=== PATIENT | female | born 1955 | race African-American/Black ===

== ENCOUNTER 2018-11-07 14:12 | Observation (INO) ==
[2018-11-07] MEDS ORDERED: ASPIRIN PO ONE ×2 (14:18→14:19)
[2018-11-07] MEDS ORDERED: NITROGLYCERIN TOP ONE (15:28)
[2018-11-07 15:31] LABS: BASO# 0.02 X1000 (0.0-0.2); BASO% 0.3 % (0.0-0.8); EOS# 0.21 X1000 (0.0-0.7); EOS% 2.9 % (0.0-10.0); HEMOGLOBIN 11.3 g/dL (12.0-16.0); IMM GRAN# 0.01 X1000 (0.0-0.04); IMM GRAN% 0.1 % (0.0-0.5); LYMPH# 1.68 X1000 (1.2-3.4); LYMPH% 23.5 % (20.5-51.1); MCH 30.2 PG (27-31); MCHC 32.3 g/dL (33-37); MCV 93.6 FL (81-99); MONO% 12.6 % (1.7-9.3); MPV 11.8 FL (7.4-10.4); NEUT# 4.33 X1000 (1.4-6.5); NEUT% 60.6 % (42.2-75.2); PLT 206 X1000 (130-400); RBC 3.74 XMIL (4.2-5.4); WBC 7.15 X1000 (4.8-10.8)
[2018-11-07 16:08] LABS: AGAP 14; ALBUMIN 3.9 g/dL (3.5-5.0); ALKALINE PHOSPHATASE 51 U/L (32-104); BUN 17 mg/dL (8-22); CALCIUM 8.8 mg/dL (8.8-10.2); CHLORIDE 105 mmol/L (98-107); COSMO 284; CREATININE 0.6 mg/dL (0.5-0.9); ESTIMATED GFR > 60; GLUCOSE 92 mg/dL (70-104); GOT 15 U/L (10-30); GPT 27 U/L (10-36); SODIUM 142 mmol/L (136-145); TCO2 24 mmol/L (25-35); TOTAL PROTEIN 6.9 g/dL (6.3-8.3)
--- NOTE | 2018-11-07 16:31 | Diag Imaging Result Doc PS360 ---
EXAM: CHEST-2 VIEWS INDICATION: sob chest pain TECHNIQUE: 2 views COMPARISON: 08/14/2018 FINDINGS: The pulmonary vascularity is prominent suggesting pulmonary venous congestion. This is very similar to the previous study, however. The lungs are grossly clear, otherwise. There is no discrete pleural fluid collection or pneumothorax. There is stable cardiomegaly. IMPRESSION: Stable cardiomegaly and suggestion of mild pulmonary venous congestion. Electronically signed by Tolu Haddad 11/07/2018 4:29 PM
[2018-11-07 17:37] LABS: BILIRUBIN URINE NEGATIVE (NEGATIVE); BLOOD URINE NEGATIVE (NEGATIVE); CLARITY CLEAR (CLEAR); COLOR YELLOW; GLUCOSE URINE NEGATIVE (NEGATIVE); KETONE URINE NEGATIVE (NEGATIVE); LEUKOCYTES URINE 1+ (NEGATIVE); NITRITE URINE NEGATIVE (NEGATIVE); PROTEIN URINE TRACE mg/dL (NEGATIVE); UROBILINOGEN URINE NORMAL
[2018-11-07 17:39] LABS: URINE BACTERIA 2+ /HFP; URINE EPITHELIAL CELLS >10 /HPF (<10); URINE RBC <10 /HPF (<10); URINE SOURCE CLEAN CATCH; URINE WBC 20-40 /HPF (<10)
[2018-11-07 17:40] LABS: URINE CAST NONE SEEN /LPF; URINE CRYSTAL NONE SEEN /HPF; URINE YEAST NONE SEEN /HPF
[2018-11-07] MEDS ORDERED: XOPENEX NEB INH PRN (17:52)
[2018-11-07] MEDS ORDERED: DUONEB (A & A) INH PRN (17:52)
--- NOTE | 2018-11-07 18:28 | HISTORY AND PHYSICAL ---
PRIMARY CARE PROVIDER: Dr Mariana Figueroa. CHIEF COMPLAINT: Dyspnea and epigastric pain. HISTORY OF PRESENT ILLNESS: Mrs. Owens is a 63-year-old female with a history of morbid obesity with a BMI greater than 50, type 2 diabetes mellitus, coronary artery disease, and others who presents with dyspnea and epigastric pain since Thursday. Symptoms are vague. She gets short of breath mostly when she gets up and goes to the bathroom, however she is, for the most part, chair and bed bound. She has also been reporting epigastric discomfort, nonradiating, occurring randomly, not associated with exertion, and not relieved with anything in particular. She has not had any fevers or chills. She reports cough with whitish sputum production. No lower extremity edema but does report orthopnea. She reports PND as well. She came to the ER today for evaluation. Labs were unremarkable. Chest x-ray did not show anything acute. Her EKG shows sinus bradycardia without acute ST or T abnormalities. Given her history, we are going to admit her for observation status. PAST MEDICAL HISTORY: 1. Coronary artery disease, status post multiple MIs and stents. 2. Diabetes type 2, not requiring insulin. 3. Hyperlipidemia. 4. Morbid obesity with BMI greater than 50. 5. COPD requiring 24/7 oxygen. 6. Iron deficiency. 7. History of right breast cancer. 8. Chronic back pain. PAST SURGICAL HISTORY: She has had a tubal ligation, right breast lumpectomy, left arm surgery. SOCIAL HISTORY: She quit smoking cigarettes but she vapes heavily. Denies alcohol or drug use. FAMILY HISTORY: Noncontributory. REVIEW OF SYSTEMS: A 14-point review of systems was obtained and found to be negative with the exception of the HPI. ALLERGIES: No known drug allergies. HOME MEDICATIONS: Have not yet been compiled. PHYSICAL EXAMINATION: VITAL SIGNS: Blood pressure is 105/53, heart rate is 51, respiratory rate is 19, O2 saturation is 99% on 2 L, temperature is 98 degrees Fahrenheit. GENERAL: Morbidly obese female lying in hospital bed in no acute distress. NEUROLOGICAL: Awake, alert, and oriented. Follows commands. No focal deficits. HEENT: Head is atraumatic and normocephalic. Pupils are equal, round and reactive to light. Oral mucosa is a bit dry. NECK: Trachea is midline. Neck is difficult to assess given body habitus. CHEST: Distant but clear to auscultation. CARDIOVASCULAR: Distant heart sounds. S1 and S2 is noted. 2/6 murmur. GASTROINTESTINAL: No tenderness to palpation. Abdomen is soft. EXTREMITIES: No edema. Pulses are 1+ bilaterally. DIAGNOSTIC DATA: Chest x-ray shows stable cardiomegaly with suggestion of mild pulmonary vascular congestion. EKG shows sinus bradycardia. No acute ST or T abnormalities. WBC is 7.15, hemoglobin 11.3, hematocrit 35.0, platelet count 206. D dimer 0.33. Sodium is 142, potassium 4.0, chloride 105, CO2 is 24, anion gap 14, BUN is 17, creatinine 0.6, glucose is 92, calcium 8.8. LFTs negative. Troponin negative. proBNP 544. ASSESSMENT AND PLAN: 1. Atypical chest pain: The patient will be admitted for observation status. We will trend cardiac enzymes. Continue aspirin. Check an echo in the morning. Continue breathing treatments and pulmonary toilet. 2. Dyspnea: Probably hypoventilation/Pickwickian given her body habitus. D dimer is negative. There is no evidence of coronary ischemia. Chest x-ray does not show anything acute. We are going to check an echo. Continue breathing treatments. 3. Hypertension: Continue home medications once compiled. 4. Chronic obstructive pulmonary disease: No exacerbation noted. Lungs are clear. Continue home medications once compiled, oxygen, and pulmonary toilet. 5. Type 2 diabetes: Will add patterned sugars, sliding scale insulin, and diabetic diet. 6. Iron deficiency anemia: Continue her home iron. 7. Hyperlipidemia: Will check a lipid panel in the morning. Continue statin. 8. Deep venous thrombosis prophylaxis with Lovenox. Further recommendations to follow. Dictated by BRE Rosas for Jurgen Calix MD cc: BRE Rosas MD
--- NOTE | 2018-11-07 18:49 | HISTORY AND PHYSICAL ---
ADDENDUM: Patient seen and examined in the ER. Full note dictated and discussed by nurse practitioner. Patient states that she is having chest pain midsternal. States it is a little similar, but not completely, to her previous 3 MIs and 3 stents. Does have a known history of hypertension, diabetes, and high cholesterol. States the pain has been going on for 3 or 4 days. We will admit her to the hospital, rule out [place], and further disposition at that time. cc: Jurgen Calix MD
[2018-11-07] MEDS: DUONEB (A & A) INH SCH ×2 (19:42→22:48)
[2018-11-07] MEDS: LOVENOX SUBQ SCH (22:02)
[2018-11-07] MEDS: HUMULIN R SUBQ SCH (22:02)
--- NOTE | 2018-11-07 22:38 | PROVIDER DOCUMENTATION ---
This chart was entered by Estee Dumont Scribe, acting as scribe for Kashif Gonzalez MD. HPI-General Adult - General Chief Complaint: Shortness of Breath Stated Complaint: chest Time Seen by Provider: 11/07/18 15:18 Source: patient Allergies/Adverse Reactions: Patient Allergies Allergy/AdvReac Type Severity Reaction Status Date / Time No Known Allergies Allergy Verified 10/24/15 00:25 Home Medications: Home Medication List Medication Instructions Recorded Confirmed Last Taken Type Clopidogrel [Plavix] 75 mg PO DAILY 12/12/13 11/07/18 10/23/15 07:00 History Fluoxetine HCl 40 mg PO DAILY 12/12/13 11/07/18 10/23/15 07:00 History Glimepiride 4 mg PO BID 12/12/13 11/07/18 10/23/15 07:00 History Lisinopril 10 mg PO DAILY 12/12/13 11/07/18 10/23/15 07:00 History Metformin HCl [Metformin ER 500 mg PO BID 12/12/13 11/07/18 10/23/15 07:00 History Osmotic] Montelukast Sodium 10 mg PO DAILY 12/12/13 11/07/18 10/23/15 07:00 History Potassium Chloride E.r. [Klor-Con] 20 meq PO BID 12/12/13 11/07/18 10/23/15 07:00 History Multivitamin/Iron/Folic Acid 1 each PO DAILY #0 tablet 12/25/13 11/07/18 10/23/15 07:00 Rx [Multi-Day Plus Iron Tablet] Aspirin 81 mg PO DAILY 10/24/15 11/07/18 10/23/15 07:00 History Carvedilol [Coreg] 6.25 mg PO BID 10/24/15 11/07/18 10/23/15 07:00 History Ferrous Sulfate 325 mg PO BID 10/24/15 11/07/18 10/23/15 07:00 History Furosemide [Lasix] 40 mg PO BID 10/24/15 11/07/18 10/23/15 07:00 History Omeprazole 20 mg PO DAILY 10/24/15 11/07/18 10/23/15 07:00 History PRAVAstatin [Pravachol] 80 mg PO DAILY 10/24/15 11/07/18 10/23/15 07:00 History Cetirizine HCl 10 mg PO DAILY 09/18/17 11/07/18 Unknown History Mayfield-3 Fatty Acids/Fish Oil 1 each PO DAILY 09/18/17 11/07/18 Unknown History [[place]field 3 1,000 mg Softgel] Temazepam 15 mg PO DAILY 09/18/17 11/07/18 Unknown History Albuterol Sulfate Inhaler 2 puff INH Q6H PRN PRN #1 inhaler 08/14/18 11/07/18 Unknown Rx [Ventolin Hfa] Amlodipine Besylate 10 mg PO DAILY 11/07/18 11/07/18 Unknown History Baclofen 20 mg PO TID 11/07/18 11/07/18 Unknown History Budesonide/Formoterol Fumarate 1 puff PO DAILY 11/07/18 11/07/18 Unknown History [Symbicort 160-4.5 Mcg Inhaler] Docusate Sodium [Dok] 100 mg PO BID 11/07/18 11/07/18 Unknown History Hydrocodone/Acetaminophen 7.5 mg PO TID PRN PRN 11/07/18 11/07/18 Unknown History [Hydrocodone-Acetamin 7.5-325] Linaclotide [Linzess] 145 mcg PO DAILY 11/07/18 11/07/18 Unknown History Oxybutynin Chloride [Oxybutynin 10 mg PO DAILY 11/07/18 11/07/18 Unknown History Chloride ER] - History of Present Illness -Gen Adult Nature of Presenting Problems: 63 year old female presents to the ER with complaint of SOB x 2 days with productive cough (white). Pt also complains of chest pain 8/10 on pain scale. Pt has history of 5 stent placement. Location of Pain/Injury: reports: chest (right side) Pain Radiation: reports: no radiation Quality of Pain: reports: sharp Severity: reports: moderate, severe Onset/Duration: reports: 2 days ago Timing: reports: intermittent (4 times total each time 5-10 minutes) Context/Activities at Onset: reports: none Modifying Factors: improves with: nothing Associated Symptoms: reports: cough, shortness of breath Similar Symptoms Previously?: Yes Recently seen or treated by another doctor?: No Review of Systems - Adult - REVIEW OF SYSTEMS - ADULT Constitutional: denies: chills, fever Eyes: reports: no symptoms reported Ears, Nose, Mouth & Throat: reports: no symptoms reported Cardiovascular: reports: chest pain. denies: palpitations Respiratory: reports: cough, excessive sputum production, shortness of breath Gastrointestinal: reports: no symptoms reported Genitourinary: reports: no symptoms reported Musculoskeletal: reports: no symptoms reported Integumentary: reports: no symptoms reported Neurological: reports: no symptoms reported Psychiatric: reports: no symptoms reported Endocrine: reports: no symptoms reported Past History - Adult - PAST MEDICAL HISTORY-ADULT Review of Records: reports: Nursing Assessment Review, Medications Reviewed Major Childhood Illnesses: reports: denies history Cardiovascular: reports: cardiac disease, HTN, [place] Respiratory: reports: denies history Gastrointestinal: reports: GERD Obstetrical/Gynecological: reports: denies history Genitourinary: reports: denies history Musculoskeletal: reports: denies history Neurological: reports: denies history Endocrine/Immune: reports: Diabetes Other Conditions: reports: denies history, other cancer (breast) - PRIOR SURGERIES/PROCEDURES Surgical/Procedure History: reports: BTL, other (conary artery stents) - PRIOR HOSPITALIZATIONS Prior Hospitalizations: reports: for other non-related - IMMUNIZATION STATUS Childhood Immunizations: See Nurse Assessment Flu Vaccine: See Nurse Assessment - FAMILY HISTORY Family History: reviewed, not pertinent Physical Exam-General - PHYSICAL EXAM-ADULT Initial Vital Signs Reviewed: Yes - CONSTITUTIONAL General Appearance: alert, mild distress - EYES Eyes: PERRL/EOMI, pink conjunctivae - HEAD, EARS, NOSE, MOUTH & THROAT HENMT: normocephalic/atraumatic, moist mucous membranes, normal ENT inspection - NECK Neck: non-tender, normal inspection - RESPIRATORY Respiratory: lungs clear, normal breath sounds - CARDIOVASCULAR Cardiovascular: normal peripheral pulses, regular rate, rhythm - GASTROINTESTINAL (ABDOMEN) Abdominal Exam: normal bowel sounds, non tender, soft - MUSCULOSKELETAL Back Exam: no CVA tenderness, no vertebral tenderness Extremity: normal range of motion, normal inspection - SKIN Integumentary: normal color, warm/dry - NEUROLOGIC Neurologic: grossly normal, no motor/sensory deficits - PSYCHIATRIC Psych/Mental Status: normal thought process, oriented x 3 Progress - PLAN OF CARE/RESULTS Progress/Plan/Lab Results: Vital Signs - 8 hr 11/07/18 14:13 Temperature 98 F Pulse Rate 50 L Respiratory Rate 20 Blood Pressure 152/65 O2 Sat by Pulse Oximetry 93 L Laboratory Results - last 24 hr 05/05/19 14:50 WBC 7.15 RBC 3.74 L Hgb 11.3 L Hct 35.0 L MCV 93.6 MCH 30.2 MCHC 32.3 L RDW Std Deviation 14.0 Plt Count 206 MPV 11.8 H Immature Gran % (Auto) 0.1 Neut % (Auto) 60.6 Lymph % (Auto) 23.5 Lyman % (Auto) 12.6 H Eos % (Auto) 2.9 Baso % (Auto) 0.3 Immature Gran # (Auto) 0.01 Neut # (Auto) 4.33 Lymph # (Auto) 1.68 Lyman # (Auto) 0.90 H Eos # (Auto) 0.21 Baso # (Auto) 0.02 Orders Category Date Time Status CHEST-2 VIEWS [RAD] Stat Exams 11/07/18 14:16 Taken CBC WITH DIFF [HEME] Stat Lab 11/07/18 14:50 Completed CK PROFILE [SP CHEM] Stat Lab 11/07/18 14:50 Received COMPREHENSIVE METABOLIC PANEL [CHEM] Stat Lab 11/07/18 14:50 Received D-DIMER [COAG] Stat Lab 11/07/18 14:50 Received PRO B-NATRIURETIC PEPTIDE Stat Lab 11/07/18 14:50 Received TROPONIN T Stat Lab 11/07/18 14:50 Received Aspirin Med 11/07/18 14:18 Discontinued 325 mg PO NOW ONE Aspirin Med 11/07/18 14:19 Discontinued 325 mg PO NOW ONE Nitroglycerin Med 11/07/18 15:28 Discontinued 0.5 inch TOP NOW ONE PT WITH Hx ACS s/p 5 stents. Heart score 5. No recent cardiac workup, need furt her cardiac workup. Result Diagrams: 11/07/18 14:50 11/07/18 14:50 - EKG 1 Time of EKG reading by physician:: 15:55 EKG Read and Signed by:: Kashif Gonzalez EKG Interpretation (*Must complete 3 of following elements*): Normal Rate: 54 Rhythm: sinus bradycardia Sidon: normal QRS: normal - CONSULTS/PCP/HOSPITALIST Notification #1 *Consult/PCP/Hospitalist*: Dr. Calix Time Discussed: 17:09 Consult Disposition: Admit (Hx, PE and patient care discussed, admitted.) Departure - Departure Date of Disposition Decision: 11/07/18 Time of Disposition Decision: 17:08 DIAGNOSIS: SOB (shortness of breath) Chest pain Qualifiers: Chest pain type: unspecified Qualified Code(s): R07.9 - Chest pain, unspecified Disposition: ADMITTED INPATIENT 09 Certified Medical Emergency: Emergent Condition: Stable - Critical Care Note This patient required my direct & personal management of CC.: No Attestation - Physician/ ROMULO Attestation Patient care was provided by Advanced Practice Provider:: No The physician spent face to face time with patient:: Yes Advanced Practice Provider documentation review:: Supervising physician onsite and consulted in the evaluation and care of this patient. The physician did have a face to face encounter with the patient. This chart was documented by the indicated scribe, (Estee Dumont, Mine) and accurately reflects the services I performed and decisions made by me, Kashif Garcia MD, as attested by the provider's signature.
[2018-11-07] MEDS: PRAVACHOL PO SCH (22:55)
[2018-11-07] MEDS: COREG PO SCH (22:55)
[2018-11-07] MEDS: BACTROBAN OINTMENT TOP SCH (22:55)
[2018-11-07] MEDS: AMARYL PO SCH (22:55)
[2018-11-07] MEDS: FISH OIL CONCENTRATE PO SCH (22:56)
[2018-11-07] MEDS: GLUCOPHAGE XR PO SCH (22:56)
[2018-11-07] MEDS: KLOR-CON PO SCH (22:56)
[2018-11-07] MEDS: RESTORIL PO SCH (22:56)
[2018-11-07] MEDS: LIORESAL PO SCH (22:56)
[2018-11-07] MEDS: DITROPAN XL PO SCH (22:56)
[2018-11-07] MEDS: FERROUS SULFATE PO SCH (22:56)
[2018-11-08] MEDS: DUONEB (A & A) INH SCH ×6 (03:08→23:19)
[2018-11-08] MEDS: TYLENOL PO PRN ×2 (05:53→12:52)
[2018-11-08] MEDS: HUMULIN R SUBQ SCH (06:07)
[2018-11-08 06:45] LABS: HEMATOCRIT 35.4 % (37.0-47.0); HEMOGLOBIN 11.3 g/dL (12.0-16.0); MCH 29.8 PG (27-31); MCHC 31.9 g/dL (33-37); MCV 93.4 FL (81-99); MPV 11.9 FL (7.4-10.4); RBC 3.79 XMIL (4.2-5.4); WBC 7.28 X1000 (4.8-10.8)
[2018-11-08 07:15] LABS: AGAP 10; BUN 15 mg/dL (8-22); CALCIUM 8.7 mg/dL (8.8-10.2); CHLORIDE 108 mmol/L (98-107); CHOLESTEROL 161 mg/dL (0-200); COSMO 288; CREATININE 0.6 mg/dL (0.5-0.9); ESTIMATED GFR > 60; GLUCOSE 71 mg/dL (70-104); HDL 53 mg/dL (45-65); LDL 89 mg/dL; MAGNESIUM 1.6 mg/dL (1.5-2.7); SODIUM 145 mmol/L (136-145); TCO2 27 mmol/L (25-35); TRIGLYCERIDES 97 mg/dL (35-135); VLDL 19 mg/dL
[2018-11-08] MEDS ORDERED: ASPIRIN PO SCH (09:00)
[2018-11-08] MEDS: BACTROBAN OINTMENT TOP SCH ×2 (09:20→20:30)
[2018-11-08] MEDS: AMARYL PO SCH ×2 (09:20→20:31)
[2018-11-08] MEDS: SINGULAIR PO SCH (09:20)
[2018-11-08] MEDS: FERROUS SULFATE PO SCH ×2 (09:20→20:30)
[2018-11-08] MEDS: LIORESAL PO SCH ×3 (09:21→17:02)
[2018-11-08] MEDS: DITROPAN XL PO SCH (09:21)
[2018-11-08] MEDS: RESTORIL PO SCH (09:21)
[2018-11-08] MEDS: GLUCOPHAGE XR PO SCH ×2 (09:21→20:31)
[2018-11-08] MEDS: COREG PO SCH ×2 (09:21→20:31)
[2018-11-08] MEDS: FISH OIL CONCENTRATE PO SCH (09:21)
[2018-11-08] MEDS: KLOR-CON PO SCH ×2 (09:21→20:31)
[2018-11-08] MEDS: PRAVACHOL PO SCH (09:22)
[2018-11-08] MEDS ORDERED: XOPENEX NEB INH PRN (11:06)
[2018-11-08] MEDS: HUMULIN R (PARKWAY) SUBQ SCH ×3 (11:30→20:34)
--- NOTE | 2018-11-08 13:05 | EKG Report ---
Test Performed on : 11/07/2018 6:36:01 PM Test Reason : CP Blood Pressure : / mmHG Vent. Rate : 055 BPM Atrial Rate : 055 BPM P-R Int : 196 ms QRS Dur : 092 ms QT Int : 444 ms P-R-T Axes : 049 018 041 degrees QTc Int : 424 ms Sinus bradycardia. with sinus arrhythmia. Possible Inferior infarct , age undetermined Abnormal ECG When compared with ECG of 07-NOV-2018 14:25, (Unconfirmed) No significant change was found Unconfirmed Result
--- NOTE | 2018-11-08 15:40 | PROGRESS NOTE ---
DATE: 11/08/2018 SUBJECTIVE: Patient reports is still complaining of central thoracic chest pain. Denies any fever or chills. OBJECTIVE: Vital Signs: Temperature 97.9, heart rate 48, respiratory rate 16, blood pressure 136/33. O2 sat 99% on room air. General: This is a 63-year-old female lying in bed in no acute distress. HEENT: Head is normocephalic, atraumatic. Neck: No JVD noted. No carotid bruits. No lymphadenopathy. No thyromegaly. Cardiovascular: S1, S2 heard. No murmurs, gallops or rubs. Regular rate and rhythm. Respiratory: Clear bilaterally to auscultation. No work of breathing or using accessory muscles. Abdomen: Soft, nontender to palpation. Bowel sounds present. No organomegaly. Extremities: No clubbing, cyanosis or edema. Peripheral pulses present in both legs. Neurologic: Patient is alert and oriented x 3. Moves 4 extremities. LABORATORY DATA: We have checked troponins 3 times and those are negative. There is an order for echo that has been cancelled. ASSESSMENT AND PLAN: 1. Chest pain. Patient admitted for observation status. Patient has history of coronary artery disease with stents placed. We have trend cardiac enzymes x 3, in this case troponins, and those are negative. We can continue with aspirin. Echo has been, we initially ordered it on admission, it has been canceled. I have not seen any echo done here in [facility]. I don't know if she had one done in [facility]. In any case, we will order one and will follow Cardiology. 2. Hypertension. Blood pressure is under control. We will continue with the same management. 3. COPD. Patient is not in any exacerbation. No wheezing noted. We will continue with breathing treatments. 4. Diabetes mellitus type 2. We will continue with sliding scale insulin. Accu-Chek before meals and also at bedtime. 5. Hyperlipidemia. We will continue with statin. 6. DVT prophylaxis. Patient is on Lovenox. 7. Disposition. Depending upon Cardiology, as we mentioned before, patient is complaining of central thoracic pain. She has history of IN with stents placed. We will check an echo will see what Cardiology has to say. cc: MD SHEYLA Bird
[2018-11-08] MEDS: LOVENOX SUBQ SCH (17:02)
--- NOTE | 2018-11-08 17:22 | ECHO REPORT ---
ORDER DATE: 11/08/2018 INTERPRETING PHYSICIAN: Dr. Mckeon CLINICAL INDICATIONS: Chest pain and dyspnea. M-MODE MEASUREMENTS: Left ventricle end diastole: 5.5 cm. Left ventricle end systole: 3.4 cm. Posterior wall: 1.3 cm. Interventricular septum: 1.3 cm. Left atrium: 4.9 cm. Aortic diameter: 3.0 cm. SUMMARY OF 2-DIMENSIONAL IMAGING: The study is somewhat difficult. Optison was added to the study at the end of the echocardiographic study to optimize visualization of endocardium. 1. Left ventricular function appears to be at the lower limits of normal. Estimated roughly at 57%. There is mild degree of concentric LVH. 2. The mitral annulus is densely calcified. Color flow mapping of the mitral annulus indicates mild degree of regurgitation. Continuous wave Doppler across the mitral valve indicates a maximum gradient of 17 mm, mean gradient of 8 mm, raising some concern for mild degree of mitral stenosis. This is probably just calcific mitral valve. 3. The tissue Doppler of the septal and lateral mitral annulus averages just 5 cm, indicating impaired left ventricular relaxation. 4. The aortic valve is calcified. It shows restricted opening. Maximum gradient is 23 mmHg. Mean gradient 13 mmHg. This would suggest a mild degree of aortic stenosis. Valve area probably in the order of 1.5 cm2. Color flow mapping shows mild degree of aortic regurgitation. 5. Tricuspid valve shows mild degree of regurgitation. 6. Pulmonary pressure is estimated at 52 mmHg. The inferior vena cava is not dilated. 7. No convincing evidence of wall motion abnormality was noted with Optison and the ejection fraction appeared to be grossly within normal range. 8. The atria appeared to be mildly enlarged. The right ventricle was suboptimally visualized. Clinical correlation is recommended. cc: MD Jaleel Sun CRNP MTDD
--- NOTE | 2018-11-08 17:39 | CARDIOLOGY CONSULTATION ---
DATE: 11/08/2018 CHIEF COMPLAINT: Chest pain. HISTORY OF PRESENT ILLNESS: Ms Owens is a 63-year-old black female with a history of coronary disease, diabetes and morbid obesity. She presented for evaluation of shortness of breath and epigastric/lower sternal chest pain. This has been going on for 3 to 4 days waxing and waning but present there pretty much all the time. She reports no provokers or palliators. There is no exertional component to it. PAST MEDICAL HISTORY: 1. Significant for coronary disease with previous PCI. I do not have any records for many of these except for 1 case in 2008 at which time, she had a stent to the right coronary. On that study the left main, left anterior descending and circumflex vessels all appeared to have minimal to no disease. 2. Diabetes. 3. Hyperlipidemia. 4. Morbid obesity with BMI over 50. 5. COPD. 6. Iron deficiency anemia. 7. History of breast cancer. 8. Chronic pain. SOCIAL HISTORY: She quit smoking but apparently still vapes. No alcohol or drug use. FAMILY HISTORY: Significant for hypertension. REVIEW OF SYSTEMS: A 10 system review of systems is negative except for those things mentioned in HPI. PHYSICAL: She is afebrile, heart rate of 54, blood pressure 132/75, O2 saturation is 92% on 2 L.General: She is in no acute distress. HEENT: Oropharynx moist. Poor dentition. Eye examination shows pink conjunctivae. White sclerae. Neck: Shows no obvious thyromegaly or thyroid tenderness. Cardiovascular: She has distant heart sounds. Regular rate and rhythm. No murmurs. No S3. She has no lower extremity edema. Chest: Sounds clear, very distant. No increased work of breathing. Abdomen: Soft, nontender, nondistended. No obvious organomegaly but significantly limited examination secondary to her obesity. Skin: Warm and dry throughout. Neurological: Moving all extremities well. No lateralizing deficits. Psychiatric: Alert, oriented, pleasant. She has normal mood and affect. PERTINENT DATA: EKG reviewed by me Nov 07 1424 sinus rhythm, rate of 54 beats per minute, very small inferior Q-waves, 2nd EKG at 1836 on November 07 shows sinus rhythm, small inferior Q-waves, no acute signs of ischemia. Chest x-ray shows cardiomegaly with possible mild pulmonary venous congestion. White count 7.2, hematocrit 35, platelet count is 198,000. Sodium 145, potassium 4, BUN 15, creatinine 0.6, mag level is 1.6. Cardiac enzymes are negative times multiple sets. Her proBNP is 544. ASSESSMENT: Ms. Owens is a 63-year-old female with a history of coronary disease who presents for somewhat atypical chest discomfort. PLAN: We will proceed with myocardial perfusion imaging in the morning along with an echocardiogram. Will try giving her a small IV dose of Lasix at 20 mg IV x1 given her slight elevation in proBNP, her symptoms of shortness of breath as well as her chest discomfort. We will treat her and see if she has an improvement in the symptom. Her LDL was above 70. I will discontinue her pravastatin and place her on atorvastatin given her history of PCI in the past. cc: Nikhil Ramos MD
[2018-11-08] MEDS ORDERED: LOMOTIL PO PRN (19:19)
[2018-11-08] MEDS ORDERED: LIPITOR PO SCH (21:00)
[2018-11-09] MEDS: DUONEB (A & A) INH SCH ×4 (03:05→15:06)
[2018-11-09] MEDS: HUMULIN R (PARKWAY) SUBQ SCH ×3 (06:13→16:40)
[2018-11-09] MEDS ORDERED: ASPIRIN PO SCH (09:00)
--- NOTE | 2018-11-09 11:27 | GRADED EXERCISE REPORT ---
DATE: 11/09/2018 ORDERING PHYSICIAN: DR. Ramos. PROCEDURE PERFORMED: This is a Lexiscan EKG interpretation, administration of test. SUMMARY: Heart rate 74, blood pressure 174/70. Baseline EKG showed normal sinus rhythm, nonspecific ST changes. However, she had frequent PACs with a compensatory pause which she had throughout her exam. She was administered 0.4 mg Lexiscan. She did not have chest pain after administration or during the course of the test. However, she did have, again, frequent PACs with pauses. Her peak heart rate 93, peak blood pressure 181/70. Tolerated the test without difficulty. The test was felt to be clinically negative. Electrically, there were no ST changes. However, again, she had frequent PACs with compensatory pauses. Myocardial perfusion reported separately. cc: Pepe Walker MD
[2018-11-09] MEDS: LIORESAL PO SCH ×3 (12:10→16:39)
[2018-11-09] MEDS: COREG PO SCH (12:11)
[2018-11-09] MEDS: SINGULAIR PO SCH (12:11)
[2018-11-09] MEDS: FISH OIL CONCENTRATE PO SCH (12:11)
[2018-11-09] MEDS: RESTORIL PO SCH (12:11)
[2018-11-09] MEDS: GLUCOPHAGE XR PO SCH ×2 (12:11→17:20)
[2018-11-09] MEDS: KLOR-CON PO SCH (12:12)
[2018-11-09] MEDS: DITROPAN XL PO SCH (12:12)
[2018-11-09] MEDS: BACTROBAN OINTMENT TOP SCH (12:12)
[2018-11-09] MEDS: FERROUS SULFATE PO SCH (12:12)
[2018-11-09] MEDS: AMARYL PO SCH ×2 (12:12→17:20)
[2018-11-09] MEDS ORDERED: NORCO-7.5 PO PRN (12:25)
[2018-11-09 15:42] VITALS: BP 143/51
--- NOTE | 2018-11-09 15:51 | Diag Imaging Result Document ---
PROCEDURE NAME: MYOCARDIAL PERF SCAN, STR/REST - 11/09/2018 INDICATION: Chest pain. PROCEDURES PERFORMED: 1. Lexiscan stress (results dictated separately by primary physician). 2. One day stress/rest myocardial perfusion imaging. PROCEDURE IN DETAIL: Ms. Owens was brought to the nuclear laboratory and had a resting study with injection of 15.9 mCi of technetium-99m sestamibi with usual imaging protocol utilized. She subsequently was brought back and had a Lexiscan stress. At peak stress, was injected with 45.3 mCi of technetium-99m sestamibi with usual imaging protocol utilized. FINDINGS: 1. Lexiscan stress results dictated separately. 2. No evidence of transient ischemic dilatation. The ratio is 0.94. 3. There is evidence for abnormal extracardiac uptake on the rest images in the right upper extremity. This is likely external radiotracer contamination on the right upper extremity. 4. Perfusion imaging demonstrates a large size, [id number] intensity, fixed defect. This appears to be located in the inferior basilar, mid inferior, inferior apical. This is fixed and consistent with scar. In addition, there does appear to be an area of reduced activity in the apical and anterior apical, which is likely consistent with soft tissue attenuation. Wall motion is intact in this area. 5. Normal ejection fraction of 72%. The end-diastolic volume is 141, end-systolic volume is 40. Inferior hypokinesis is noted. cc: Nikhil Ramos MD
[2018-11-09] MEDS ORDERED: LEXISCAN ONE (16:02)
[2018-11-09] MEDS: LOVENOX SUBQ SCH (17:20)
--- NOTE | 2018-11-09 22:00 | DISCHARGE SUMMARY ---
ADMISSION DATE: 11/07/2018 DISCHARGE DATE: 11/09/2018 ADMISSION DIAGNOSES: 1. Atypical chest pain. 2. Dyspnea. 3. Hypertension. 4. Chronic obstructive pulmonary disease, no exacerbation. 5. Diabetes mellitus type 2. 6. Iron-deficiency anemia. 7. Hyperlipidemia. DISCHARGE DIAGNOSES: 1. Atypical chest pain. Chest pain free at this time. Stress test shows an inferior infarct which is known and a second defect on the stress which looked like breast attenuation. Ejection fraction normal. 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 It was felt that it was safe to go home, per Dr. Ramos. 2. Hypertension, controlled. 3. Chronic obstructive pulmonary disease, no exacerbation. 4. Diabetes mellitus type 2, controlled as well. 5. Hyperlipidemia, continued on statin. CONSULTATIONS: Dr. Nikhil Ramos. SURGERIES OR PROCEDURES: She had a myocardial perfusion scan. Perfusion imaging demonstrates a large-sized [id number]-intensity fixed defect that appears to be located in the very basilar mid-inferior apical, which is consistent with scar, a fixed defect. Normal ejection fraction, and diastolic volume is 151. Inferior hypokinesis. An exercise stress test was negative. There were no ST changes. There were frequent PACs with compensatory pauses. HOSPITAL COURSE: On 11/07/2018, Ms. Amna Owens, an female, presented with a history of morbid obesity (BMI 43.6), diabetes, and coronary disease with complaints of dyspnea and epigastric pain since the Thursday prior to admission. The dyspnea was mostly exertional, but otherwise she is chair or bed bound. There was also a reporting of epigastric discomfort that was nonradiating. It was just random in occurrence, not associated with exertion. Denied fever or chills. Chest x-ray was acute. Labs were unremarkable. EKG did not show any ST changes. She remained cardiac enzyme negative. She had a myocardial perfusion scan that showed old scarring in the inferior area, also an exercise stress test that was negative. She was seen by cardiology and had an echocardiogram as well while she was here, which showed an EF of 57%. There was some concern for a mild degree of mitral stenosis and also signs of impaired left ventricular relaxation. The aortic valve was also calcified with a mild degree of aortic stenosis. There was pulmonary artery hypertension with a 52 mmHg systolic pulmonary pressure. Currently she is chest pain free and is deemed appropriate for discharge home. DISCHARGE VITAL SIGNS: Temperature 98.4, heart rate 58, respiratory rate 20, blood pressure 143/51, O2 saturation 93% on 2 L nasal cannula. LABORATORY DATA: None today, but cardiac enzymes have been negative. PERTINENT IMAGING: On 11/07/2018, chest x-ray showed stable cardiomegaly, suggestion of mild pulmonary venous congestion. Echocardiogram was as reported in the hospital course. EKG: Sinus bradycardia, rate 55. QTc was 424. DISCHARGE MEDICATIONS: 1. Amlodipine besylate 10 mg p.o. daily. 2. Aspirin 81 mg p.o. daily. 3. Baclofen 20 mg p.o. t.i.d. 4. Cetirizine HCl 10 mg p.o. daily. 5. Coreg 6.25 mg p.o. twice daily 6. Docusate sodium 100 mg p.o. twice daily 7. Ferrous sulfate 325 p.o. twice daily. 8. Fluoxetine HCl 40 mg p.o. daily. 9. Glimepiride 4 mg p.o. twice daily. 10.[place] 7.5 t.i.d. p.r.n. 11.Potassium chloride extended release 29 mEq p.o. twice daily 12.Lasix 40 mg p.o. twice daily. 13.Linzess 145 mcg p.o. daily. 14.Lisinopril 10 mg p.o. daily. 15.Metformin 500 mg p.o. twice daily. 16.Montelukast sodium 10 mg p.o. daily. 17.Fish oil once daily. 18.Omeprazole 20 mg p.o. daily. 19.Oxybutynin chloride 10 mg p.o. daily. 20.Plavix 75 mg p.o. daily. 21.Pravachol/pravastatin 80 mg p.o. daily. 22.Budesonide/formoterol fumarate 1 puff daily. 23.Temazepam 50 mg p.o. daily. 24.Multivitamin once daily. 25.Albuterol 2 puffs inhaled every 6 hours p.r.n. DISCHARGE ACTIVITY: As tolerated. DISCHARGE DIET: Heart healthy and diabetic. DISCHARGE INSTRUCTIONS: If your condition changes, contact your physician and/or return to the emergency department. Changes may include but are not limited to shortness of breath, increased fatigue, excessive bleeding, unexplained weight loss or gain, unimaginable pain, or signs or symptoms of infection. PHYSICIAN FOLLOWUP: With Dr. Mariana Figueroa and Dr. Nikhil Ramos. DISCHARGE DISPOSITION: Home. Dictated by BRE Sandra for Salomon Garcia MD Addendum: Patient seen and examined by myself. Agree with BRE note. It reflects my assessment and plan. Patient is being discharged in stable condition. will be seen by Water [employer] Servicer [employer] Installer in 4 weeks. In the other hand patient has mobility limitations that significantly impair her participation in mobility-related activities of daily living. In order to entirely meet her needs a walker or cane is not sufficient to meet patient mobility needs. Patient has expressed a willingness ot use manual wheelchair and her residency has adequate space to manually operate the wheelchair which will improve patient's ability to complete her activities of daily living. She has a sufficient upper body strength to propel wheelchair manually. cc: BRE Sandra MD [facility]
== END 2018-11-09 17:24 | disposition home or self-care (01) ==
LOC: P.ED 14:12 → P.MEDSURG 14:12 → SUATTDRO 18:22
PROVIDERS: ATTEND Internal Medicine
CPT/HCPCS: 71020; 71046; 78452; 80048; 80053; 80061; 81001; 82550; 82948; 83735; 83880; 84484; 85025; 85027; 85379; 87088; 87324; 93005; 93017; 93306; 94640; 94761; 99285; A9270; A9500; C8929; J1650; J1815; J2785; Q9957; XXXXX

== ENCOUNTER 2018-11-15 12:27 | Inpatient (IN) ==
[~2018-11-15 12:27] MED LIST: NITROGLYCERIN SL ONE
[2018-11-15 12:38] LABS: BASO# 0.02 X1000 (0.0-0.2); BASO% 0.3 % (0.0-0.8); EOS# 0.25 X1000 (0.0-0.7); EOS% 3.4 % (0.0-10.0); HEMOGLOBIN 11.9 g/dL (12.0-16.0); IMM GRAN# 0.01 X1000 (0.0-0.04); IMM GRAN% 0.1 % (0.0-0.5); LYMPH# 1.86 X1000 (1.2-3.4); MCH 30.1 PG (27-31); MCHC 32.2 g/dL (33-37); MCV 93.4 FL (81-99); MONO# 0.86 X1000 (0.11-0.59); MONO% 11.6 % (1.7-9.3); MPV 11.1 FL (7.4-10.4); NEUT# 4.44 X1000 (1.4-6.5); NEUT% 59.6 % (42.2-75.2); PLT 260 X1000 (130-400); RBC 3.96 XMIL (4.2-5.4); RDW 13.9 % (11.5-14.5); WBC 7.44 X1000 (4.8-10.8)
[2018-11-15 12:56] LABS: AGAP 11; ALKALINE PHOSPHATASE 59 U/L (32-104); BUN 14 mg/dL (8-22); CALCIUM 9.4 mg/dL (8.8-10.2); CHLORIDE 103 mmol/L (98-107); CK PROFILE 51 U/L (24-173); COSMO 283; CREATININE 0.6 mg/dL (0.5-0.9); ESTIMATED GFR > 60; GLUCOSE 123 mg/dL (70-104); GOT 17 U/L (10-30); GPT 26 U/L (10-36); POTASSIUM 4.4 mmol/L (3.5-5.1); SODIUM 141 mmol/L (136-145); TCO2 26 mmol/L (25-35); TOTAL PROTEIN 7.5 g/dL (6.3-8.3)
--- NOTE | 2018-11-15 13:16 | EKG Report ---
Test Performed on : 11/15/2018 12:05:19 PM Test Reason : chest pain Blood Pressure : / mmHG Vent. Rate : 050 BPM Atrial Rate : 050 BPM P-R Int : 194 ms QRS Dur : 086 ms QT Int : 456 ms P-R-T Axes : 026 005 049 degrees QTc Int : 415 ms Sinus bradycardia. with premature atrial complexes. with aberrant conduction. Inferior infarct (cited on or before 07-NOV-2018) Abnormal ECG When compared with ECG of 07-NOV-2018 18:36, (Unconfirmed) aberrant conduction. is now present Unconfirmed Result
--- NOTE | 2018-11-15 13:22 | Diag Imaging Result Doc PS360 ---
EXAM: CHEST-PORTABLE HISTORY: chest pain TECHNIQUE: Portable chest single view COMPARISON: None. FINDINGS: The lungs are well expanded. The heart is enlarged. The vessels are not distended. There are no infiltrates. No effusion identified. IMPRESSION: Cardiomegaly Electronically signed by Levi Walker 11/15/2018 1:20 PM
--- NOTE | 2018-11-15 15:24 | PROVIDER DOCUMENTATION ---
This chart was entered by Janelle Mcmillan Scribe, acting as scribe for Reid Yusuf MD. HPI-Chest Pain - General Chief Complaint: Return/Recheck Stated Complaint: CHEST PAIN Time Seen by Provider: 11/15/18 12:13 Source: patient Allergies/Adverse Reactions: Patient Allergies Allergy/AdvReac Type Severity Reaction Status Date / Time No Known Allergies Allergy Verified 10/24/15 00:25 Home Medications: Home Medication List Medication Instructions Recorded Confirmed Last Taken Type Clopidogrel [Plavix] 75 mg PO DAILY 12/12/13 11/07/18 10/23/15 07:00 History Fluoxetine HCl 40 mg PO DAILY 12/12/13 11/07/18 10/23/15 07:00 History Glimepiride 4 mg PO BID 12/12/13 11/07/18 10/23/15 07:00 History Lisinopril 10 mg PO DAILY 12/12/13 11/07/18 10/23/15 07:00 History Metformin HCl [Metformin ER 500 mg PO BID 12/12/13 11/07/18 10/23/15 07:00 History Osmotic] Montelukast Sodium 10 mg PO DAILY 12/12/13 11/07/18 10/23/15 07:00 History Potassium Chloride E.r. [Klor-Con] 20 meq PO BID 12/12/13 11/07/18 10/23/15 07:00 History Multivitamin/Iron/Folic Acid 1 each PO DAILY #0 tablet 12/25/13 11/07/18 10/23/15 07:00 Rx [Multi-Day Plus Iron Tablet] Aspirin 81 mg PO DAILY 10/24/15 11/07/18 10/23/15 07:00 History Carvedilol [Coreg] 6.25 mg PO BID 10/24/15 11/07/18 10/23/15 07:00 History Ferrous Sulfate 325 mg PO BID 10/24/15 11/07/18 10/23/15 07:00 History Furosemide [Lasix] 40 mg PO BID 10/24/15 11/07/18 10/23/15 07:00 History Omeprazole 20 mg PO DAILY 10/24/15 11/07/18 10/23/15 07:00 History PRAVAstatin [Pravachol] 80 mg PO DAILY 0411/07/18 10/23/15 07:00 History Cetirizine HCl 10 mg PO DAILY 09/18/17 11/07/18 Unknown History Hadley-3 Fatty Acids/Fish Oil 1 each PO DAILY 09/18/17 11/07/18 Unknown History [Hadley 3 1,000 mg Softgel] Temazepam 15 mg PO DAILY 09/18/17 11/07/18 Unknown History Albuterol Sulfate Inhaler 2 puff INH Q6H PRN PRN #1 inhaler 08/14/18 11/07/18 Unknown Rx [Ventolin Hfa] Amlodipine Besylate 10 mg PO DAILY 11/07/18 11/07/18 Unknown History Baclofen 20 mg PO TID 11/07/18 11/07/18 Unknown History Budesonide/Formoterol Fumarate 1 puff PO DAILY 11/07/18 11/07/18 Unknown History [Symbicort 160-4.5 Mcg Inhaler] Docusate Sodium [Dok] 100 mg PO BID 11/07/18 11/07/18 Unknown History Hydrocodone/Acetaminophen 7.5 mg PO TID PRN PRN 11/07/18 11/07/18 Unknown History [Hydrocodone-Acetamin 7.5-325] Linaclotide [Linzess] 145 mcg PO DAILY 11/07/18 11/07/18 Unknown History Oxybutynin Chloride [Oxybutynin 10 mg PO DAILY 11/07/18 11/07/18 Unknown History Chloride ER] - History of Present Illness-CP Nature of Presenting Problem: 63yof via EMS with hx of diabetes, HTN, hyperlipidemia, breast cancer, NE, cardiac stents c/o chest pain that radiates to RUE with sob and nausea for one week. She reports that she was recently admitted at [facility] for chest pain last week and was recently discharged. She reports Dr. Ramos as her college associate. She was given one aspirin by EMS and no nitro. She denies fever, chills, vomiting, diarrhea. Location: reports: substernal Chest Pain Radiation: reports: arms (RUE) Quality of Pain: reports: other ("pain") Severity in ED: moderate Onset/Duration: 1 week ago Timing: still present, intermittent, constant Context/Activities at Onset: reports: none Modifying Factors: improves with: nothing Associated Symptoms: reports: nausea, shortness of breath. denies: fever/chills, vomiting Nitro Today/Relief: no nitro taken today Aspirin Treatment Today: 81 mg x 1, provided by EMS Prior Chest Pain/Cardiac Workup: reports: heart attack, other (stent placement) Similar Symptoms Previously?: Yes Recently Seen Here or By Another Healthcare Provider: Yes Review of Systems - Adult - REVIEW OF SYSTEMS - ADULT Constitutional: denies: chills, fever Eyes: denies: discharge, dry eyes Ears, Nose, Mouth & Throat: denies: ear discharge, ear pain Cardiovascular: reports: chest pain. denies: palpitations Respiratory: reports: shortness of breath. denies: cough Gastrointestinal: reports: nausea. denies: abdominal pain, diarrhea, vomiting Genitourinary: denies: dysuria, hematuria Musculoskeletal: denies: back pain, muscle aches, muscle weakness Integumentary: reports: no symptoms reported Neurological: denies: dizziness/vertigo, headache/migraines Psychiatric: reports: no symptoms reported Endocrine: reports: no symptoms reported Hematologic/Lymphatic: reports: no symptoms reported Allergic/Immunologic: reports: no symptoms reported All Other Systems: Reviewed and Negative Past History - Adult - PAST MEDICAL HISTORY-ADULT Review of Records: reports: Old Records Reviewed, Nursing Assessment Review, Medications Reviewed Major Childhood Illnesses: reports: denies history Cardiovascular: reports: cardiac disease, HTN, NE Respiratory: reports: denies history Gastrointestinal: reports: GERD Obstetrical/Gynecological: reports: denies history Genitourinary: reports: denies history Musculoskeletal: reports: denies history Neurological: reports: denies history Endocrine/Immune: reports: Diabetes Other Conditions: reports: denies history, other cancer (breast) - PRIOR SURGERIES/PROCEDURES Surgical/Procedure History: reports: BTL, other (conary artery stents) - PRIOR HOSPITALIZATIONS Prior Hospitalizations: reports: for other non-related - IMMUNIZATION STATUS Childhood Immunizations: See Nurse Assessment Flu Vaccine: See Nurse Assessment - FAMILY HISTORY Family History: reviewed, not pertinent - SOCIAL HISTORY Smoking: other (former) Substance Use: denies Living Situation: family Physical Exam-General - PHYSICAL EXAM-ADULT Exam Limited by: morbid obesity Initial Vital Signs Reviewed: Yes - CONSTITUTIONAL General Appearance: alert, obese, other (pt appears to be uncomfortable) - EYES Eyes: PERRL/EOMI, pink conjunctivae - HEAD, EARS, NOSE, MOUTH & THROAT HENMT: normocephalic/atraumatic, moist mucous membranes - NECK Neck: non-tender, supple - RESPIRATORY Respiratory: chest non-tender, lungs clear, normal breath sounds, no pleuratic chest pain, no respiratory distress, no accessory muscle use. negative: crackles, wheezing - CARDIOVASCULAR Cardiovascular: regular rate, rhythm, no murmur, bradycardia. negative: tachycardia - GASTROINTESTINAL (ABDOMEN) Abdominal Exam: non tender, soft. negative: distended - SKIN Integumentary: normal color, warm/dry. negative: cyanosis, ecchymosis, erythema - NEUROLOGIC Neurologic: grossly normal, no motor/sensory deficits - PSYCHIATRIC Psych/Mental Status: normal mood/affect, normal thought content, normal thought process, oriented x 3 - HEART Score HEART Score: History: Highly Suspicious HEART Score: ECG: Normal HEART Score: Age: > or = 65 Years HEART Score: Risk Factors for Atherosclerotic Disease: > or = 3 Risk Factors or History of Atherosclerotic Disease HEART Score: Troponin: < or = Normal Limit Total HEART Score:: 6 Progress - PLAN OF CARE/RESULTS Progress/Plan/Lab Results: Vital Signs - 8 hr 11/15/18 12:08 11/15/18 15:25 Pulse Rate 58 L 58 L Respiratory Rate 10 L 16 Blood Pressure 159/63 131/38 O2 Sat by Pulse Oximetry 97 Laboratory Results - last 24 hr 11/15/18 11/15/18 11/15/18 12:15 12:15 12:15 WBC 7.44 RBC 3.96 L Hgb 11.9 L Hct 37.0 MCV 93.4 MCH 30.1 MCHC 32.2 L RDW Std Deviation 13.9 Plt Count 260 MPV 11.1 H Immature Gran % (Auto) 0.1 Neut % (Auto) 59.6 Lymph % (Auto) 25.0 [place] % (Auto) 11.6 H Eos % (Auto) 3.4 Baso % (Auto) 0.3 Immature Gran # (Auto) 0.01 Neut # (Auto) 4.44 Lymph # (Auto) 1.86 [place] # (Auto) 0.86 H Eos # (Auto) 0.25 Baso # (Auto) 0.02 D-Dimer, Quantitative Sodium 141 Potassium 4.4 Chloride 103 Carbon Dioxide 26 Anion Gap 11 BUN 14 Creatinine 0.6 Estimated GFR/1.73 m2 > 60 BUN/Creatinine Ratio 23 Glucose 123 H Calculated Osmolality 283 Calcium 9.4 Total Bilirubin 0.30 AST 17 ALT 26 Alkaline Phosphatase 59 Creatine Kinase 51 Troponin T Tjl-O-Paeyaeufdfy Pept 388 H Total Protein 7.5 Albumin 4.0 Globulin 4.0 Albumin/Globulin Ratio 1.0 11/15/18 11/15/18 12:15 12:15 WBC RBC Hgb Hct MCV MCH MCHC RDW Std Deviation Plt Count MPV Immature Gran % (Auto) Neut % (Auto) Lymph % (Auto) [place] % (Auto) Eos % (Auto) Baso % (Auto) Immature Gran # (Auto) Neut # (Auto) Lymph # (Auto) [place] # (Auto) Eos # (Auto) Baso # (Auto) D-Dimer, Quantitative 0.64 H Sodium Potassium Chloride Carbon Dioxide Anion Gap BUN Creatinine Estimated GFR/1.73 m2 BUN/Creatinine Ratio Glucose Calculated Osmolality Calcium Total Bilirubin AST ALT Alkaline Phosphatase Creatine Kinase Troponin T < 0.010 [id number]-Udmwfdypqwa Pept Total Protein Albumin Globulin Albumin/Globulin Ratio Orders Category Date Time Status Admit - [facility] Routine AdmDCTranf 11/15/18 15:21 Active CHEST-PORTABLE [RAD] Stat Exams 11/15/18 12:27 Completed BNP [PRO B-NATRIURETIC PEPTIDE] Stat Lab 11/15/18 12:15 Completed CBC WITH ELECTRONIC DIFF [HEME] Stat Lab 11/15/18 12:15 Completed CK PROFILE [SP CHEM] Stat Lab 11/15/18 12:15 Completed COMPREHENSIVE METABOLIC PANEL [CHEM] Stat Lab 11/15/18 12:15 Completed D-DIMER [COAG] Stat Lab 11/15/18 12:15 Completed PROTIME WITH INR [COAG] Stat Lab 11/15/18 15:24 Ordered PTT [COAG] Stat Lab 11/15/18 15:24 Ordered TROPONIN T Stat Lab 11/15/18 12:15 Completed Enoxaparin [Lovenox] Med 11/15/18 15:30 Active 105 mg SUBQ Q12H Nitroglycerin Sl [Nitroglycerin] Med 11/15/18 12:27 Discontinued 0.4 mg SL NOW ONE EKG [EKG] Stat Ther 11/15/18 12:26 Draft Transfer/Admit Order [TRANSFER] Routine Transfer 11/15/18 15:22 Ordered Pt discussed with Dr Ramos for Cardio who asked that pt be transferred to heart center. [facility] accepted to Dr Tiwari but noted they will not have bed available until tomorrow. Pt discussed with Dr Calix who agreed to admit until bed is available at . Asked for Lovenox. Result Diagrams: 11/15/18 12:15 11/15/18 12:15 - EKG 1 Time of EKG reading by physician:: 12:05 EKG Read and Signed by:: Reid Yusuf EKG Interpretation (*Must complete 3 of following elements*): Abnormal Rate: 50 Rhythm: Sinus bradycardia Staley: normal ST Wave: normal - XRAY 1 XRAY Study: Chest Impression: Abnormal (FINDINGS: The lungs are well expanded. The heart is enlarged. The vessels are not distended. There are no infiltrates. No effusion identified. IMPRESSION: Cardiomegaly) - CONSULTS/PCP/HOSPITALIST Notification #1 *Consult/PCP/Hospitalist*: Dr. Calix Time Discussed: 13:30 Reason/Comments: @ 13:30-please request advice from cardiology Consult Disposition: other ( @15:00- admit pt to [facility], start pt on lovenox, hold pt until bed is available at and then transfer pt to ) #2 Consult: Dr. Ramos, cardiology Time Discussed: 14:47 Reason/Comments: please transfer pt to [facility], pt needs cath Consult Disposition: other #3 Consult: Dr. Tiwari, cardiology at [facility] Time Discussed: 14:56 Reason/Comments: will admit pt, but no beds available until tomorrow Consult Disposition: Admit Departure - Departure Date of Disposition Decision: 11/15/18 Time of Disposition Decision: 15:18 DIAGNOSIS: Chest pain, Elevated d-dimer, CHF (congestive heart failure) Disposition: ADMITTED INPATIENT 09 Certified Medical Emergency: Emergent Condition: Stable Additional Freetext Instructions: ED Follow Up Instructions: You have been treated by a care provider in the Emergency Department. These instructions are being provided to you so you can have an understanding of how to care for yourself upon discharge. Upon discharge from the Emergency Department, you are responsible for making arrangements for follow-up care by a physician of your choice. Take all prescribed medications as directed. Return to the Emergency Department immediately for any new or worsening symptoms. You may call the Physician Referral phone number at [phone] to obtain a list of Physicians who are taking new patients. Referrals and Follow-Ups: None,PCP [Primary Care Provider] - - Critical Care Note This patient required my direct & personal management of CC.: No Attestation - Physician/ ROMULO Attestation Patient care was provided by Advanced Practice Provider:: No The physician spent face to face time with patient:: Yes Advanced Practice Provider documentation review:: Supervising physician onsite and consulted in the evaluation and care of this patient. The physician did have a face to face encounter with the patient. This chart was documented by the indicated scribe, (Janelle Mcmillan, Mine) and accurately reflects the services I performed and decisions made by me, Reid Yusuf MD, as attested by the provider's signature.
[2018-11-15] MEDS ORDERED: LOVENOX SUBQ SCH (15:30)
[2018-11-15 15:38] LABS: PROTIME 13.7 Seconds (11.0-16.0)
[2018-11-15 15:39] LABS: PTT 34.9 Seconds (22.3-41.8)
[2018-11-15] MEDS ORDERED: LOVENOX ONE (17:04)
[2018-11-15] MEDS ORDERED: NITROGLYCERIN SL PRN (17:31)
[2018-11-15] MEDS ORDERED: ZOFRAN IV PRN (17:31)
[2018-11-15] MEDS ORDERED: TYLENOL PO PRN (17:31)
[2018-11-15 20:04] VITALS: BP 149/44
[2018-11-15] MEDS ORDERED: HUMALOG (PARKWAY) SUBQ SCH (21:00)
--- NOTE | 2018-11-16 06:57 | HISTORY AND PHYSICAL ---
PRIMARY CARE PROVIDER: None. STAVE AND BOLT EQUALIZER: Dr. Nikhil Ramos. CHIEF COMPLAINT: Chest pain. HISTORY OF PRESENT ILLNESS: Ms. Owens is a 63-year-old female who was recently discharged from our service on 11/09/2018 for chest pain. At that time, she underwent an exercise stress test as well as a myocardial perfusion scan. Her perfusion scan did show old scarring in the inferior area as well as on exercise stress test that was negative. She was seen by Cardiology, had an echocardiogram done at that time that showed an EF of 57%. There was some concern for mild degree of mitral stenosis and impaired left ventricular relaxation, a mild degree of aortic stenosis with some pulmonary artery hypertension at 52 mmHg, and she was discharged back home. She reported to the ED again today with chest pain that has been ongoing since her discharge, that lasts 15 to 20 minutes at a time throughout the day. It is associated with shortness of breath, diaphoresis, chills, and she may have some heart flutters. She states it is the same pain as her previous MIs. The pain starts underneath her left breast, radiates to the right breast and radiates down her right arm. She states she sleeps on 3 to 4 pillows, which is her norm. She has not had to get up to go the recliner to sleep. She does not feel like her weight has increased. She did complain of a headache. She denied any associated nausea, vomiting, dizziness, fever, or cough. Dr. Yusuf spoke with Dr. Nikhil Ramos who instructed to give full dose Lovenox and called the transfer center for heart catheterization, however, they do not have any beds and she will be transferred in the a.m. Workup in the ED: Her 1 set of troponins is 0.010. She did have a slightly elevated D-dimer at 0.64. We will check bilateral lower extremity Dopplers in the a.m. if the patient is still here. She is going to continue on full dose Lovenox. PAST MEDICAL HISTORY: 1. Coronary artery disease status post multiple MIs and stents. 2. Diabetes mellitus type 2, non-insulin dependent. 3. Hyperlipidemia. 4. Morbid obesity with a BMI greater than 50. 5. COPD on home O2. 6. Iron deficiency. 7. History of right breast cancer. 8. Chronic back pain. PAST SURGICAL HISTORY: 1. Tubal ligation. 2. Right breast lumpectomy. 3. Left arm surgery. SOCIAL HISTORY: The patient quit smoking. She continues to vape heavily. No alcohol or illicit drug use. FAMILY HISTORY: Noncontributory. REVIEW OF SYSTEMS: A 12-point review of systems completely negative except for those mentioned in HPI. ALLERGIES: No known drug allergies. HOME MEDICATIONS: Have not been reconciled. PHYSICAL EXAMINATION: VITAL SIGNS: Temperature is 97.8 degrees, heart rate 55, respirations 18, blood pressure 155/42, O2 is 97% on 2 L nasal cannula. GENERAL: Ms. Owens is a morbidly obese 63-year-old female lying in the hospital bed in no acute distress. HEENT: Atraumatic, normocephalic. PERRL. NECK: Supple. Trachea midline. CARDIOVASCULAR: S1-S2 appreciated. No murmurs, gallops, rubs noted. CHEST: Seems to be clear bilaterally. Bilaterally decreased in the bases. NEUROLOGIC: No focal deficits noted. SKIN: Appears to be warm, dry, and intact. GASTROINTESTINAL: Soft, nontender, nondistended. Positive bowel sounds all 4 quadrants. EXTREMITIES: No edema. No clubbing, no cyanosis. Bilateral pedal pulses are palpable. DIAGNOSTIC DATA: Chest x-ray showed cardiomegaly. The vessels are not distended. No infiltrates. No effusions. EKG: Sinus bradycardia with premature atrial complexes with aberrant conduction at 50 beats per minute. QTc is 415. LABORATORY DATA: Essentially unremarkable. White count 7, hemoglobin and hematocrit 11 and 37, platelet count 260,000. D-dimer 0.64. Sodium 141, potassium 4.4, BUN 14, creatinine 0.6, blood glucose was 123. ProBNP was 388. First troponin was less than 0.010. ASSESSMENT AND PLAN: 1. Chest pain, rule out myocardial infarction, appears to be atypical. The patient has been placed on full-dose Lovenox and will be transferred to [facility] in the a.m. for heart catheterization. We will continue her home medications when reconciled. Will continue with sublingual nitroglycerin. Recheck an EKG in the a.m. Continue healthy heart diet, NPO after midnight. The patient did recently have an exercise stress test, Lexiscan and echocardiogram. 2. Type 2 diabetes. Will continue fingerstick blood sugar. She is not requiring any insulin. She is diet controlled. 3. Hyperlipidemia. 4. Morbid obesity, BMI of 45.3. 5. Chronic obstructive pulmonary disease requiring home O2. 6. Iron deficiency anemia. 7. History of right breast cancer. 8. Chronic back pain. Further recommendation to follow physician evaluation, laboratory and diagnostic data. The patient we anticipate to be transferred to [facility] in the a.m. for heart catheterization. Dictated by BRE Rogel for Jurgen Calix MD cc: MD Jurgen Soto MD
[2018-11-16] MEDS ORDERED: PRILOSEC PO SCH (07:00)
--- NOTE | 2018-11-16 08:03 | HISTORY AND PHYSICAL ---
ADDENDUM: The patient presented to the hospital with chest pain. She was admitted by myself approximately a week ago with similar symptoms. Apparently she stayed in the hospital a few days before being discharged. At this time upon readmission to the hospital she certainly seems a little bit worse. She seems more short of breath than she did before. Cardiology in [place] has accepted in transfer, although there is not currently a bed. She has a known significant history of heart disease with previous stenting. Will admit her to [facility] overnight and hopefully transfer to [facility] in the morning when bed is available. cc: Jurgen Calix MD
--- NOTE | 2018-11-17 10:15 | DISCHARGE SUMMARY ---
ADMISSION DATE: 11/15/2018 DISCHARGE DATE: 11/15/2018 CONSULTATION: Cardiology. PROCEDURES: None. BRIEF HOSPITAL COURSE: Patient was admitted to the hospital with chest pain and diaphoresis. She thankfully had an uneventful hospital course. DISPOSITION: Patient was admitted due to not having a bed at [place] for transfer. Once a bed was available, then she was transferred to [facility]. Further plans and discharge instructions per [facility]. cc: Jurgen Calix MD
== END 2018-11-15 22:47 | disposition short-term general hospital (02) | DRG 313 ==
LOC: P.ED 12:27 → P.MEDSURG 12:27 → OBSVTOIN 16:59
PROVIDERS: ATTEND Family Medicine
CPT/HCPCS: 71010; 71045; 80053; 82550; 82948; 83880; 84484; 85025; 85379; 85610; 85730; 93005; 96372; 99285; A9270; J1650; J1815; XXXXX

== ENCOUNTER 2019-09-08 00:20 | Observation (INO) ==
[2019-09-08 01:12] LABS: BASO# 0.03 X1000 (0.0-0.2); BASO% 0.3 % (0.0-0.8); EOS# 0.21 X1000 (0.0-0.7); EOS% 1.9 % (0.0-10.0); HEMATOCRIT 42.9 % (37.0-47.0); HEMOGLOBIN 13.3 g/dL (12.0-16.0); IMM GRAN# 0.02 X1000 (0.0-0.04); IMM GRAN% 0.2 % (0.0-0.5); LYMPH# 2.24 X1000 (1.2-3.4); LYMPH% 19.8 % (20.5-51.1); MCH 29.6 PG (27-31); MCV 95.3 FL (81-99); MONO# 1.26 X1000 (0.11-0.59); MONO% 11.1 % (1.7-9.3); NEUT# 7.55 X1000 (1.4-6.5); NEUT% 66.7 % (42.2-75.2); PLT 240 X1000 (130-400); RDW 13.7 % (11.5-14.5); WBC 11.31 X1000 (4.8-10.8)
[2019-09-08] MEDS ORDERED: NITROGLYCERIN SL ONE (01:16)
[2019-09-08 01:22] LABS: INR 0.95; PROTIME 13.1 Seconds (11.0-16.0)
[2019-09-08 01:42] LABS: ALBUMIN 4.1 g/dL (3.5-5.0); CALCIUM 9.7 mg/dL (8.8-10.2); CREATININE 2.1 mg/dL (0.5-0.9); TOTAL BILIRUBIN 0.2 mg/dL (0.20-1.00); TOTAL PROTEIN 7.8 g/dL (6.3-8.3)
[2019-09-08] MEDS ORDERED: ZOFRAN IV ONE (01:51)
[2019-09-08] MEDS ORDERED: MORPHINE IV ONE (01:51)
[2019-09-08 02:13] LABS: CK INDEX 0.8 (0.0-2.5); CK-MB 1.47 ng/mL (0.0-5.0)
[2019-09-08] MEDS ORDERED: MORPHINE IV PRN (03:49)
[2019-09-08] MEDS ORDERED: ZOFRAN IV PRN (03:49)
[2019-09-08] MEDS ORDERED: TYLENOL PO PRN (03:49)
[2019-09-08] MEDS: NS 1,000 ML IV SCH ×2 (07:49→14:37)
--- NOTE | 2019-09-08 08:31 | Diag Imaging Result Doc PS360 ---
EXAM: CHEST-PORTABLE - 09/08/2019 HISTORY: CP TECHNIQUE: Portable chest COMPARISON: 05/01/2019 FINDINGS: Heart size appears borderline enlarged and mildly decreased compared to prior. The lungs appear essentially clear. There is no pleural effusion or pneumothorax identified. IMPRESSION: Borderline cardiomegaly. No other evidence of acute disease. Electronically signed by Edwin oB 09/08/2019 8:29 AM
--- NOTE | 2019-09-08 09:20 | EKG Report ---
Test Performed on : 09/07/2019 9:26:31 PM Test Reason : cp Blood Pressure : / mmHG Vent. Rate : 059 BPM Atrial Rate : 059 BPM P-R Int : 168 ms QRS Dur : 084 ms QT Int : 434 ms P-R-T Axes : 051 060 071 degrees QTc Int : 429 ms Sinus bradycardia. Otherwise normal ECG No previous ECGs available Unconfirmed Result
--- NOTE | 2019-09-08 09:30 | EKG Report ---
Test Performed on : 09/08/2019 00:22:24 AM Test Reason : cp Blood Pressure : / mmHG Vent. Rate : 078 BPM Atrial Rate : 078 BPM P-R Int : 196 ms QRS Dur : 084 ms QT Int : 394 ms P-R-T Axes : 044 018 008 degrees QTc Int : 449 ms Sinus rhythm. with premature supraventricular complexes. Inferior infarct (cited on or before 08-SEP-2019) Abnormal ECG When compared with ECG of 08-SEP-2019 00:20, (Unconfirmed) premature ventricular complexes. are no longer present Unconfirmed Result
[2019-09-08 11:27] LABS: BASO# 0.02 X1000 (0.0-0.2); BASO% 0.2 % (0.0-0.8); EOS# 0.11 X1000 (0.0-0.7); HEMATOCRIT 38.2 % (37.0-47.0); HEMOGLOBIN 11.7 g/dL (12.0-16.0); IMM GRAN# 0.02 X1000 (0.0-0.04); IMM GRAN% 0.2 % (0.0-0.5); LYMPH# 1.84 X1000 (1.2-3.4); LYMPH% 16.7 % (20.5-51.1); MCH 29.1 PG (27-31); MCHC 30.6 g/dL (33-37); MONO# 1.12 X1000 (0.11-0.59); MONO% 10.2 % (1.7-9.3); NEUT% 71.7 % (42.2-75.2); PLT 216 X1000 (130-400); RBC 4.02 XMIL (4.2-5.4); RDW 13.4 % (11.5-14.5); WBC 11.01 X1000 (4.8-10.8)
[2019-09-08 11:45] LABS: ALBUMIN 3.8 g/dL (3.5-5.0); CALCIUM 8.8 mg/dL (8.8-10.2); CREATININE 1.7 mg/dL (0.5-0.9); TOTAL BILIRUBIN 0.2 mg/dL (0.20-1.00); TOTAL PROTEIN 6.9 g/dL (6.3-8.3)
[2019-09-08 11:52] LABS: INR 1.02; PROTIME 13.9 Seconds (11.0-16.0)
[2019-09-08 11:53] LABS: PTT 31.6 Seconds (22.3-41.8)
[2019-09-08 11:58] LABS: URINE SOURCE CLEAN CATCH
[2019-09-08 12:02] LABS: BILIRUBIN URINE NEGATIVE (NEGATIVE); BLOOD URINE NEGATIVE (NEGATIVE); COLOR YELLOW; GLUCOSE URINE 500 mg/dL (NEGATIVE); KETONE URINE NEGATIVE (NEGATIVE); LEUKOCYTES URINE NEGATIVE (NEGATIVE); NITRITE URINE NEGATIVE (NEGATIVE); PROTEIN URINE TRACE mg/dL (NEGATIVE); SP GRAVITY URINE 1.021; TURBIDITY URINE CLEAR (CLEAR); UROBILINOGEN URINE NORMAL (NORMAL)
[2019-09-08 12:04] LABS: UR EPITHELIAL CELLS <10 /HPF (<10); URINE BACTERIA NEGATIVE /HPF; URINE RBC <10 /HPF (<10); URINE WBC <10 /HPF (<10)
[2019-09-08] MEDS ORDERED: VENTOLIN HFA INH PRN (13:13)
[2019-09-08] MEDS ORDERED: LINZESS PO PRN (13:13)
[2019-09-08] MEDS ORDERED: LASIX PO SCH (13:15)
[2019-09-08] MEDS ORDERED: NORVASC PO SCH (13:15)
[2019-09-08] MEDS ORDERED: LIORESAL PO PRN (13:28)
--- NOTE | 2019-09-08 14:28 | HISTORY AND PHYSICAL ---
CHIEF COMPLAINT: Chest pain. HISTORY OF PRESENT ILLNESS: This is a 63-year-old, morbidly obese female with a history of CAD, diabetes mellitus, who presents to the emergency room complaining of substernal chest pain that started about an hour prior to coming to the emergency room. She states that she woke up out of her sleep with this pain. She denies any accompanying symptoms. She describes the pain as a sharp pain that is right under her right breast. She has no radiation. It does increase with movement. It does decrease somewhat while lying still. She was given nitroglycerin en route to the emergency room by EMS. She did state that it helped her pain somewhat. She was given a second nitroglycerin while in the emergency room. It did help her pain a little although the pain did return to 7 to 8 out of 10. At the time of my exam, she denies any chest pain, any palpitations, any shortness of breath, nausea, or vomiting. PAST MEDICAL HISTORY: 1. Coronary artery disease with previous PCI. In 2008, she had a stent to the right coronary artery. 2. Diabetes mellitus. 3. Hyperlipidemia. 4. Morbid obesity with a BMI of 52. 5. Chronic obstructive pulmonary disease. 6. Iron deficiency anemia. 7. Chronic pain. 8. History of breast cancer. SOCIAL HISTORY: She used to smoke cigarettes. She abates at present. She denies any alcohol or illicit drug use. FAMILY HISTORY: Significant for hypertension in parents. ALLERGIES: No known drug allergies. HOME MEDICATIONS: A list will be obtained by the nursing staff. Once verified, we will review and restart as appropriate. REVIEW OF SYSTEMS: Discussed with the patient with pertinent positives as stated in HPI. She denied any syncope or dizziness, any palpitations, any nausea, vomiting, diarrhea, constipation, any black or bloody vomitus or stools, a productive cough, any fevers or chills, night sweats, any nausea, vomiting, diarrhea, constipation, black or bloody vomitus or stools, any hematuria, dysuria, frequency, urgency. PHYSICAL EXAMINATION: GENERAL: This is a 64-year-old female who is sitting on the stretcher in the emergency room in no distress. VITAL SIGNS: Blood pressure is 99/65 with a heart rate of 82, respirations are 19. Temperature is 98.7 degrees with O2 saturations 97 to 100 percent on 2 L nasal cannula. EYES: Pupils are equal, round, react to light. EOMs are intact. Sclerae are anicteric. HEENT: Head is normocephalic, atraumatic. Mucous membranes are moist. NECK: Supple with trachea midline with no JVD. CARDIOVASCULAR: Regular rate and rhythm. S1 and S2 are appreciated. She denies calf tenderness. Peripheral pulses are palpable x4 extremities. No murmurs are noted. PULMONARY: Breath sounds are clear with no increased work of breathing noted. Chest rises and falls symmetric with respiration. Chest wall is nontender to palpation. GASTROINTESTINAL: Abdomen is soft, nondistended, nontender with bowel sounds in all 4 quadrants. NEUROLOGIC: She is alert and oriented x3. SKIN: Warm and dry. LABORATORY DATA: WBC is 11.3 with hemoglobin 13.3, hematocrit 42.9, and platelets of 240,000. INR is 0.95. Sodium is 139, potassium 5, BUN 44, creatinine 2.1 with a glucose of 255. Troponin T was 17 at 1 a.m., 16 at 3:46 a.m. Chest x-ray revealed borderline cardiomegaly no other evidence of disease. EKG: Sinus rhythm at a rate of 78. ASSESSMENT AND PLAN: 1. Chest pain. 2. Coronary artery disease. 3. Diabetes mellitus type 2. 4. Morbid obesity. 5. Chronic obstructive pulmonary disease on home O2 at 2 L. 6. History of right breast cancer. 7. Fracture of right distal fibula 09/06/2019. 8. Hypotension. 9. Acute kidney injury. hold any renal toxic medications. Continue with IV hydration, renal dose medications as appropriate. PLAN: 1. The patient will be admitted to the hospital, transferred to [facility]. telemetry. supplemental oxygen. trend troponin. Identify her home medications and continue these as appropriate. hold any antihypertensives at present as she did have hypotension. consult Orthopedics Neurovascular checks to right lower extremity. continue with pain medication. Pattern blood glucose with sliding scale insulin. For gastrointestinal prophylaxis, we will continue her omeprazole. Check a CBC and a CMP in the morning. Further treatments pending hospital course. Dictated by BRE Olvera for Jurgen Calix MD cc: BRE Olvera MD [facility]
[2019-09-08] MEDS: NORCO-7.5 PO PRN ×2 (14:35→20:48)
[2019-09-08] MEDS: HUMALOG (PARKWAY) SUBQ SCH ×2 (17:06→20:48)
--- NOTE | 2019-09-08 21:03 | ORTHOPAEDICS CONSULTATION ---
DATE: 09/08/2019 HISTORY OF PRESENT ILLNESS: This is a 63-year-old female with morbid obesity and was admitted for chest pain from the emergency department. She was recently seen in the emergency department for a right ankle fracture. She was seen by Dr. Peña. She was admitted for chest pain, for workup and orthopedics was reconsulted to come see the patient again. PAST MEDICAL HISTORY: Includes CAD with a stent placement, diabetes mellitus, hyperlipidemia, morbid obesity, COPD, iron deficiency anemia, chronic pain, history of breast cancer. Her main chief complaint when she arrived was chest pain. SOCIAL HISTORY: The patient reports smoked cigarettes in the past. She denies alcohol, or illicit drug use. ALLERGIES: There are no known drug allergies. HOME MEDICATIONS: Include [place] 7.5 one tablet q.4-6 h. p.r.n. pain, amlodipine 10 mg p.o. daily, baclofen 20 mg p.o. daily as needed, Zyrtec 10 mg daily, Farxiga 10 mg daily, Trulicity injection daily as directed, vitamin D2 daily, Linzess 145 mcg daily, lisinopril 10 mg daily, Singulair 10 mg daily, omeprazole 20 mg daily, pravastatin 80 mg daily, hydroxyzine 25 mg daily, albuterol inhaler 2 puffs every 4 hours p.r.n. shortness breath, aspirin 81 mg daily, Glimepiride 4 mg daily, furosemide 40 mg daily, oxybutynin chloride ER 10 mg daily, potassium chloride ER 20 mEq daily. PHYSICAL EXAMINATION: Vital Signs: Temperature 98.5 degrees, pulse rate 89, respiratory rate 19, pulse blood pressure 152/56, oxygen saturations 94% on 2 L. General: Patient is awake, alert, and lying on stretcher in no acute distress. HEENT: Head is atraumatic, normocephalic. Eyes equal, round, reactive. Neck: Supple. Cardiovascular: At this time is regular rate and rhythm. Pulmonary: There is equal chest expansion rise and fall. Gastrointestinal: Abdomen is large and soft. Extremity: Right lower extremity there is a splint noted to the right lower extremity. There is good sensation to the toes. There is good capillary refill in toes. There is no obvious bleeding. Skin: Warm and dry. LABORATORY DATA: White blood cells 11.01, red blood cells 4.02, hemoglobin 11.7, hematocrit 38.2, platelets are 216,000. INR 1.02. Sodium 140, potassium 5.0, chloride 105, BUN 39, creatinine 1.7, glucose 241, ALT 39. Urine showed trace protein and 500 glucose. ASSESSMENT: Right lateral malleolus fracture with good alignment. PLAN: We will plan to get her splint changed over to a cast tomorrow. She will need to follow up with Dr. Peña or Dr. Omer in clinic in about a week for repeat x-rays. We will check back on her then see how she is doing. Dictated by BRE Ma for Tolu Omer MD cc: BRE Ma MD
--- NOTE | 2019-09-08 22:06 | PROGRESS NOTE ---
DATE: 09/08/2019 SUBJECTIVE: Patient currently is on BiPAP. She is somnolent, difficult to arouse, but she does arouse and attempts to answer questions. PHYSICAL EXAMINATION: Vital Signs: She is afebrile. Vital signs stable. Heart rate is in the 90s. General: The patient is awake, in mild respiratory distress, currently on BiPAP. She is pleasant and attempts to answer questions. HEENT: Normocephalic. Neck: Supple. Cardiovascular: Regular rate. Lungs: Positive rhonchi and upper airway noise from her BiPAP. Abdomen: Soft, nondistended. Extremities: Moves all extremities. ASSESSMENT: 1. Acute hypoxic respiratory failure. 2. Next hypercapnic respiratory failure. 3. Acute renal failure. 4. Sepsis. 5. Hypertension. PLAN: We will continue with fluid bolus. Tissue reperfusion currently is normal. We will recheck potassium in the a.m. and hopefully discharge home. cc: Jurgen Calix MD
[2019-09-08 23:21] LABS: CK INDEX 0.9 (0.0-2.5); CK-MB 1.83 ng/mL (0.0-5.0)
[2019-09-09] MEDS: NORCO-7.5 PO PRN ×2 (02:36→07:10)
[2019-09-09] MEDS: PRILOSEC PO SCH ×2 (05:34→06:03)
[2019-09-09 06:21] LABS: HEMATOCRIT 36.7 % (37.0-47.0); HEMOGLOBIN 11.3 g/dL (12.0-16.0); MCH 29.4 PG (27-31); MCHC 30.8 g/dL (33-37); MCV 95.6 FL (81-99); MPV 11.8 FL (7.4-10.4); RBC 3.84 XMIL (4.2-5.4); RDW 13.4 % (11.5-14.5); WBC 9.61 X1000 (4.8-10.8)
[2019-09-09 06:34] LABS: AGAP 11; ALB/GLOB RATIO 1.1; ALBUMIN 3.4 g/dL (3.5-5.0); ALKALINE PHOSPHATASE 47 U/L (32-104); BUN 27 mg/dL (8-22); CHLORIDE 106 mmol/L (98-107); COSMO 286; CREATININE 0.9 mg/dL (0.5-0.9); ESTIMATED GFR > 60; GLUCOSE 132 mg/dL (70-104); GOT 21 U/L (10-30); GPT 36 U/L (10-36); POTASSIUM 4.6 mmol/L (3.5-5.1); SODIUM 140 mmol/L (136-145); TCO2 23 mmol/L (25-35); TOTAL BILIRUBIN 0.26 mg/dL (0.20-1.00); TOTAL PROTEIN 6.6 g/dL (6.3-8.3)
[2019-09-09] MEDS: HUMALOG (PARKWAY) SUBQ SCH ×2 (07:14→11:26)
[2019-09-09 07:36] VITALS: BP 138/42
[2019-09-09] MEDS ORDERED: ZYRTEC PO SCH (09:00)
[2019-09-09] MEDS ORDERED: FISH OIL CONCENTRATE PO SCH (09:00)
[2019-09-09] MEDS ORDERED: ATARAX PO SCH (09:00)
[2019-09-09] MEDS ORDERED: SINGULAIR PO SCH (09:00)
[2019-09-09] MEDS ORDERED: COLACE PO SCH (09:00)
[2019-09-09] MEDS ORDERED: LASIX PO SCH (09:00)
[2019-09-09] MEDS ORDERED: PRAVACHOL PO SCH ×2 (09:00)
[2019-09-09] MEDS ORDERED: ASPIRIN PO SCH (09:00)
[2019-09-09] MEDS ORDERED: SYMBICORT 160/4.5 MICROGM INHALER INH SCH (19:30)
--- NOTE | 2019-09-09 23:18 | DISCHARGE SUMMARY ---
ADMISSION DATE: 09/08/2019 DISCHARGE DATE: 09/09/2019 DISCHARGE DIAGNOSES: 1. Chest pain, in a patient with a history of coronary artery disease, which has been ruled out with x3 negative high-sensitive troponins. No EKG changes. 2. Type 2 diabetes. 3. Morbid obesity. 4. Chronic obstructive pulmonary disease (COPD) on home oxygen. 5. History of right breast cancer. 6. Fracture of the right distal fibula, recent. 7. Hypertension. PROCEDURES PERFORMED: Chest x-ray dated 09/08/2019. Impression: Borderline cardiomegaly. No other evidence of acute disease. HOSPITAL COURSE: A 64-year-old morbidly obese female with a past medical history of coronary artery disease, diabetes, presented to the emergency room complaining of chest pain that started about 1 hour prior to coming to the emergency room. She woke up out of her sleep with the pain. She denied any associated symptoms. The pain is sharp and below the right breast. It is painful to palpation, increased with movement and decreased somewhat while she is lying still. She denied any palpitation, shortness of breath, nausea or vomiting. She was kept and we did high-sensitive troponins x3 and all 3 were negative, and the pain is actually reproduced with palpation, so probably this is costochondritis. I did not see any rash. She had a recent fracture of the right distal fibula and Orthopedic Surgery evaluated this patient. They put a new cast and they want to re-evaluate this patient as an outpatient. The patient seems to be stable. She will be discharged today with home oxygen. We had a last conversation about losing weight, because she is morbidly obese with a BMI of 53.9. At the moment of discharge, the patient was in a stable medical condition, tolerating p.o. and she was not ambulating too much but she wanted to go home. She did not want to go to a rehab center. LABORATORY: WBC 9.6, hemoglobin 11.3, hematocrit 36.7, platelets 196,000, sodium 140, potassium 4.6, chloride 106, bicarbonate 23, BUN 27, creatinine 0.9. Glucose 132, calcium 9, AST 21, ALT 36, alkaline phosphatase 47, albumin 3.4. DISCHARGE MEDICATIONS: Basically, this patient will continue with her home medications. I will not add any medication. Albuterol 2 puff inhaler as needed, amlodipine 10 mg p.o. daily, aspirin 81 mg p.o. daily, Baclofen 20 mg p.o. as needed, Symbicort 1 puff inhaler as needed. Cetirizine 10 mg p.o. daily. Farxiga 10 mg p.o. daily, docusate 100 mg p.o. daily, Trulicity as directed, vitamin D2 1 tablet p.o. daily, fluoxetine 40 mg p.o. daily, Lasix 40 mg p.o. daily, Glimepiride 4 mg p.o. daily, Kyle 7.5 q.4 to 6 hours as needed, hydroxyzine 25 mg p.o. daily, Linzess 145 mg p.o. as needed. Lisinopril 10 mg p.o. daily, metformin 500 mg p.o. daily, montelukast 10 mg p.o. daily, multivitamin daily, omega-3 1000 mg soft gel, 1 capsule p.o. daily, omeprazole 20 mg p.o. daily, oxybutynin 10 mg p.o. daily, potassium chloride ER 20 mEq p.o. daily and pravastatin 80 mg p.o. daily. TIME DISCHARGING THIS PATIENT: 20 minutes. DISCHARGE INSTRUCTIONS: Follow up with Dr. Omer or Dr. Peña in a week to repeat the x-ray. Also follow up with her primary care doctor in 1 week as well. cc: Evangelista Tejeda MD
== END 2019-09-09 11:45 | disposition home or self-care (01) ==
LOC: P.ED 00:20 → P.MEDSURG 00:20 → P.EDIPHOLD 00:20 → SUATTDRO 04:28 → P.EDIPHOLD 08:38 → 2N 14:34
PROVIDERS: ATTEND Internal Medicine